=== PATIENT | female | born 1970 | race Two or more races ===

== ENCOUNTER 2017-07-12 17:56 | Emergency (ER) | payer OTHER ==
[~2017-07-12] VITALS: Ht 160 cm; Wt 84.5 kg
[2017-07-12 18:00] VITALS: BP 128/82
== END 2017-07-12 20:10 | disposition home or self-care (01) ==
LOC: ED 20:03
DX: S16.1XXA Strain of muscle, fascia and tendon at neck level, initial encounter (principal); V89.2XXA Person injured in unspecified motor-vehicle accident, traffic, initial encounter; Y93.89 Activity, other specified; Y99.8 Other external cause status; Y92.488 Other paved roadways as the place of occurrence of the external cause
CPT/HCPCS: 72020; 72050; 72072; 99284